=== PATIENT | female | born 1950 | race Caucasian/White ===

== ENCOUNTER 2016-05-25 07:30 | Day surgery (SDC) | payer MEDICARE, BC ==
[~2016-05-25] VITALS: Ht 170.2 cm; Wt 84.5 kg
[~2016-05-25 07:30] MED LIST: GLUCTAB PO; [UNRECOGNIZED DRUG - CODE] PO
[2016-05-25 07:46] VITALS: BP 143/93; PULSE 72; RESP 20; TEMP 97.9; O2SAT 94
[2016-05-25] MEDS ORDERED: SODIUM CHLORIDE 0.9% 1000 ML IV SCH (08:15)
[2016-05-25] MEDS ORDERED: CHLORHEXIDINE GLUCONATE 2 % 1 PACK (2 CLOTHS) TOPICAL SCH (08:15)
[2016-05-25] MEDS ORDERED: VANCOMYCIN 1000 MG/NS 250 ML - implanted port/tunneled catheter IV SCH ×2 (08:15)
[2016-05-25] MEDS ORDERED: ceFAZolin 2 GM PREMIX 50 ML - implanted port/tunneled catheter insertion IV SCH (08:15)
[2016-05-25] MEDS ORDERED: POVIDONE IODINE 5% (ANTISEPSIS KIT) 4 APPLICATIONS EACH NARE SCH (08:15)
[2016-05-25] MEDS ORDERED: fentaNYL CITRATE 250 MCG/5 ML AMP ONE (09:18)
[2016-05-25] MEDS ORDERED: MIDAZOLAM HCL 5 MG/5 ML VIAL ONE (09:18)
[2016-05-25] MEDS ORDERED: LIDOCAINE 1%/EPINEPHrine 1:100,000 SOLN 20 ML VIAL ONE (09:39)
--- NOTE | 2016-05-25 10:21 | PD.RAD ---
Post Procedure Progress Note Pre Procedure Diagnosis: (1) Uterine cancer Post Procedure Diagnosis: (1) Uterine cancer Procedure Date: May 25, 2016 Supervising Radiologist: Wilmar Tan Proceduralist/Assist: Derick Floyd RT(R), RT Nam(R)() Anesthesia: Local, Conscious Sedation Plan of Activity Patient to Unit: ROPU Patient Condition: Good See PACS Report for procedural detail/treatment Central Venous Access Device Procedure 1 Right Infusaport Placement single lumen Czech: 8 Wilmar Tan MD May 25, 2016 10:21
[2016-05-25 10:30] VITALS: BP 133/75; PULSE 75; RESP 16; TEMP 97.6; O2SAT 90
--- NOTE | 2016-05-25 10:43 | RADRPT ---
EXAM DATE/TIME: 05/25/2016 09:15 [place] COMPARISON: No previous studies available for comparison. INDICATIONS : Patient presents with uterine cancer in need of port placement for chemotherapy treatment. MEDICAL HISTORY : Hypothyroid Sleep apnea Endometrial cancer 2014 SURGICAL HISTORY : Tubal ligation D and C Hysterectomy ENCOUNTER: Initial ACUITY: 3 months PAIN SCORE: 0/10 LOCATION: N/A FLUORO TIME: 0.3 minutes SEDATION TIME: 45 minutes ACCESS: Right internal jugular vein SEDATION: 1.) 3 mg midazolam (Versed) IV 2.) 150 mcg fentanyl (Sublimaze) IV Prophylactic antibiotics were administered with appropriate pre-procedure timing. Vancomycin within 2 hours of procedure, Ancef (or alternative) within 1 hour of procedure. DEVICE: 1. 8 [place]ian single lumen Bard Power Port PROCEDURE : 1. Continuous pulse oximetry and EKG monitoring. 2. Intravenous conscious sedation. 3. Ultrasound guidance for venous access. 4. Fluoroscopic guided implantable central venous port placement. The patient was placed supine. The neck was prepped in sterile fashion. Full sterile technique was u sed, including cap, mask, sterile gloves and gown, and a large sterile sheet. Hand hygiene and 2% ch lorhexidine Betadine was utilized per protocol for cutaneous antisepsis with appropriate dry time for site. The skin and subcutaneous tissues were infiltrated with local anesthetic solution. Under direct ultrasound guidance, central venous access was accomplished in the targeted vessel. The ultrasound images depicting access guidance were stored and saved to PACS for permanent record. A s ubcutaneous pocket was created using blunt dissection. The port was introduced to the pocket. The c atheter tubing was fed through a subcutaneous tunnel to the venotomy site. The catheter tubing was c ut to a suitable length and then was introduced through a valved Peel-Away sheath and positioned with catheter tubing tip at the cavo-atrial junction level. The pocket incision was closed with subcutic ular Vicryl suture. Steri-Strips were applied. The port was flushed and locked with heparin solutio n per protocol. Sterile dressing was applied to the site. The patient tolerated the procedure well. Conscious sedation was performed with the prescribed dosages and duration as above. The patient liana ated the procedure well and there were no complications. EKG and oximetry remained stable throughout the procedure. The patient was sent to post anesthesia recovery in stable condition. CONCLUSION: Uncomplicated ultrasound and fluoroscopic guided implanted central venous port catheter placement as described in detail above. An 8 Jordanian Power port was placed. Wilmar Tan MD on May 25, 2016 at 10:41 Board Certified Radiologist. This report was verified electronically.
[2016-05-25 10:45] VITALS: BP 126/72; PULSE 65; RESP 16; O2SAT 94
[2016-05-25 11:15] VITALS: BP 124/76; PULSE 68; RESP 16; O2SAT 95
[2016-05-25 11:45] VITALS: BP 126/73; PULSE 64; RESP 18; O2SAT 95
[2016-05-25 12:15] VITALS: BP 119/71; PULSE 70; RESP 16; O2SAT 97
== END 2016-05-25 12:45 | disposition home or self-care (01) ==
LOC: HROP 07:30 → HRIP 07:30 → HROP 12:45
PROVIDERS: ATTEND Obstetrics & Gynecology Gynecologic Oncology
DX: Z45.2 Encounter for adjustment and management of vascular access device (principal); C55 Malignant neoplasm of uterus, part unspecified; E03.9 Hypothyroidism, unspecified; G47.30 Sleep apnea, unspecified
CPT/HCPCS: 36561; 76937; 77001; 99152; 99153; C1788; J0690; J1642; J2250; J3010; J3370; J7030; J7050

== ENCOUNTER 2017-11-27 08:04 | Inpatient (IN) ==
[2017-11-27] MEDS ORDERED: Metoprolol Tartrate 25 MG Tablet PO SCH (09:15)
[2017-11-27] MEDS ORDERED: Chlorhexidine Gluconate 2% 1 Pack (2 Cloths) TOPICAL SCH (09:15)
[2017-11-27] MEDS ORDERED: Chlorhexidine 4% Topical 120 APPLIC/120 ML Bottle TOPICAL SCH (09:15)
[2017-11-27] MEDS ORDERED: TRANEXAMIC ACID IV.SIG SCH (09:30)
[2017-11-27] MEDS ORDERED: SODIUM CHLOR 0.9% IV.SIG SCH (09:30)
[2017-11-27] MEDS ORDERED: ceFAZolin Inj 2,000 MG in Sodium Chlor 0.9% Inj 100 ML IV.SIG SCH (09:30)
[2017-11-27] MEDS ORDERED: Sodium Chlor 0.9% Inj 40 ML, Bupivacaine Liposo PF 1.3% Inj 20 ML P-ARTICULR SCH ×2 (09:30)
[2017-11-27] MEDS ORDERED: Sodium Chlor 0.9% Inj 500 ML IV.SIG SCH (10:00)
[2017-11-27] MEDS ORDERED: Vancomycin Inj 1 GM/200 ML PIGGYBACK IV.SIG SCH (10:00)
[2017-11-27] MEDS ORDERED: ceFAZolin 2 GM Premix Inj 2 GM/50 ML PIGGYBACK IV.SIG ONE (10:36)
[2017-11-27 10:50] LABS: Baso % (Auto) 0.2 % (0.0-2.0); Eos # (Auto) 0.2 th/mm3 (0.0-0.4); Eos % (Auto) 2.9 % (0.0-4.0); Hematocrit 30.5 % (35.0-46.0); Hemoglobin 10.5 gm/dL (11.6-15.3); Lymph # (Auto) 0.3 th/mm3 (1.0-4.8); Lymph % (Auto) 3.6 % (9.0-44.0); Mean Corpuscular HGB Conc 34.4 % (32.0-36.0); Mean Corpuscular Hemoglobin 33.9 pg (27.0-34.0); Mean Corpuscular Volume 98.7 fL (80.0-100.0); Mean Platelet Volume 9.3 fL (7.0-11.0); Mono # (Auto) 0.1 th/mm3 (0.0-0.9); Mono % (Auto) 2.1 % (0.0-8.0); Neut # (Auto) 6.5 th/mm3 (1.8-7.7); Neut % (Auto) 91.2 % (16.0-70.0); Platelet Count 77 th/mm3 (150-450); Red Blood Count 3.09 mil/mm3 (4.00-5.30); Red Cell Distribution Width 16.2 % (11.6-17.2); White Blood Count 7.1 th/mm3 (4.0-11.0)
[2017-11-27 10:59] LABS: INR 1.1 Ratio; Prothrombin Time 10.8 sec (9.8-11.6)
[2017-11-27 11:07] LABS: Anion Gap 6 meq/L (5-15); Blood Urea Nitrogen 22 mg/dL (7-18); Calcium 9.2 mg/dL (8.5-10.1); Carbon Dioxide 31.8 meq/L (21.0-32.0); Chloride 103 meq/L (98-107); Glomerular Filtration Rate Greater Than 89 mL/min (>89); Glucose,Random 107 mg/dL (74-106); Potassium 4.2 meq/L (3.5-5.1); Sodium 141 meq/L (136-145)
[2017-11-27 11:12] LABS: Bacteria,Urine Moderate /hpf; Bilirubin,Urine Negative (Negative); Clarity,Urine Hazy (Clear); Color,Urine Yellow (Yellw/Straw); Glucose,Urine (UA) Negative (Negative); Leukocyte Esterase,Urine Small (Negative); Mucus,Urine Few /lpf (Occasional); Nitrite,Urine Negative (Negative); Specific Gravity,Urine 1.015 (1.002-1.035); Squamous Epithelial Cell,Urine <1 /hpf (0-5)
[2017-11-27 11:33] LABS: Eosinophils 1 % (0-4); Lymphocytes 3 % (9-44); Metamyelocytes 4 % (0-1); Monocytes 2 % (0-8); Myelocytes 3 % (0-0)
[2017-11-27 11:36] LABS: Platelet Morphology Normal (Normal)
[2017-11-27] MEDS ORDERED: Phenylephrine/NS 1000 MCG/10ML Syringe IV.PUSH ONE (12:00)
[2017-11-27] MEDS ORDERED: Neostigmine Inj 5 MG/5 ML Syringe IV.PUSH ONE (12:00)
[2017-11-27] MEDS ORDERED: Lidocaine PF 1% Inj 5 ML Syringe INFILTRATN ONE (12:00)
[2017-11-27] MEDS ORDERED: Glycopyrrolate Inj 1 MG/5 ML Syringe IV.PUSH ONE (12:00)
[2017-11-27] MEDS ORDERED: oxyCODONE/Acetaminophen 10/325 Tablet PO PRN (13:28)
[2017-11-27] MEDS ORDERED: Bisacodyl 10 MG Supp RECTAL PRN (13:28)
[2017-11-27] MEDS ORDERED: Morphine Inj 4 MG/ML Vial IV.PUSH PRN (13:28)
[2017-11-27] MEDS ORDERED: Post-op Orders (for Pharmacy) OTHER STA (13:28)
--- NOTE | 2017-11-27 13:38 | P.OP ---
- Preoperative Diagnosis (1) Metastatic adenocarcinoma to bone (2) Impending pathologic fracture - Postoperative Diagnosis (1) Impending pathologic fracture (2) Metastatic adenocarcinoma to bone Date of procedure: 11/27/17 Procedure: Open treatment prophylactic intramedullary janell of the left femur, antegrade, extended trochanteric nail. Biopsy of the lesion proximal left femur Anesthesia: VERNON Surgeon: Dejon Chambers MD Monogram Maker: MATT Monroe Operation and Findings: EBL: 200 cc INDICATION: This patient is a 67-year-old female with metastatic adenocarcinoma to bone from the region of her uterus and cervix. She has had radiation therapy to the left hip. She is having increasing pain in the region of her left hip. Investigative studies are highly suspicious for an impending fracture. X-ray showed that there is a fracture starting in the region of the intertrochanteric component of her left hip. She now presents for surgical stabilization with biopsy. NOTE: Lakesha Monroe PA-C was present for the entire surgical procedure as my first assistant manager. In my medical opinion her skill and care was necessary for proper management of this patient PROCEDURE: The patient was brought to the operating room and anesthetized in the supine position. He was placed on the fracture table with the left leg held extended. The opposite leg was in the well leg mercer. The hip fracture was reduced anatomically. The hip and leg was scrubbed with alcohol followed by Hibiclens followed by ChloraPrep. A timeout was done and antibiotics were given within 1 hour time window. A longitudinal incision was made over the lateral aspect of the proximal femur. Dissection continued down to the top of the greater trochanter. A cannulated awl was placed down through the top of the greater trochanter followed by placement of the guidepin along the shaft of the femur. This was reamed distally to 1 mm greater than the janell size and proximally to 17 mm. Reamings were sent to pathology. A separate incision was made laterally followed by placement of guidepin to the proper position of the femoral head. This is reamed and tapped in the proper length was placed up into the proper location. A single transverse screw was placed distally through the janell. Intraoperative x-rays were obtained. Alignment was satisfactory. No complication was noted. The wound was irrigated copiously. Hemostasis was controlled. The fascia was closed with interrupted Vicryl suture, subcutaneous tissue 2-0 Vicryl suture, skin with running intradermal 3-0 Vicryl followed by Steri-Strips and benzoin. A sterile dressing was applied The patient was awakened and taken to the recovery room in satisfactory condition. FINDINGS: There was evidence of a fracture in the region of the greater trochanter extending into the intertrochanteric region. The stabilization was very satisfactory. A counter rotating additional support screw was placed in the cephalad portion of the femoral neck. The overall alignment was felt to be very satisfactory
--- NOTE | 2017-11-27 13:39 | P.DCO ---
- Physical Therapy Physical Therapy: Gait training Hip: Hip fracture Left Lower Extremity Weight Bearing: Weight bearing as tolerated - Nursing RN: 3 days/week x 2 weeks Dressing changes: Do not change dressing (Unless saturated) - Certification Need for Home Health services: I have seen patient Annette Tony on 11/27/17. My clinical findings support the need for the requested home health care services because: Homebound Certification: I certify that my clinical findings support that this patient is homebound because:
[2017-11-27] MEDS ORDERED: *morphine SULFATE 4 MG/ML PERIprocedure ONLY ONE ×2 (13:58→14:02)
[2017-11-27] MEDS ORDERED: fentaNYL Citrate Inj 100 MCG/2 ML Ampul ONE (13:59)
[2017-11-27] MEDS ORDERED: HYDROmorphone PF Inj 2 MG/ML Vial ONE (14:12)
--- NOTE | 2017-11-27 15:08 | P.DS ---
Date of admission: 11/27/17 08:04 Primary care physician: Anirudh Magaña Attending physician on discharge: Dejon Chambers Anticipated date of discharge: 11/28/17 DS: Diagnosis - Discharge Diagnosis (1) Metastatic adenocarcinoma to bone Status: Chronic (2) Impending pathologic fracture Status: Acute DS: Medications - Discharge Medications Prescriptions: oxycodone-acetaminophen 1 tab PO Q4H PRN #42 tab PRN Reason: Acute Pain DS: Summary Hospital Course: Surgical treatment was accomplished on the day of admission without complication. The patient recovered well in PACU and was transferred to the orthopedic floor. Pain was controlled with IV and oral medications. She is compliant with her walker and all physical therapy restrictions and precautions. After ___ days she was discharged home with home healthcare. She was instructed to continue a high fiber diet for 5-7 days postop, to ice the operative ____ twice daily, and to continue with her gait training and physical therapy. She was given prescriptions for . - Time Spent with Patient Total time spent providing and/or coordinating discharge services: - Quality: VTE Deep Vein Thrombosis/Pulmonary Embolism Present on Admission: No Exam Vital signs: Vital Signs 11/27/17 09:40 11/27/17 13:49 11/27/17 14:00 Temperature 98.7 F 97.5 F L Pulse Rate 88 80 73 Respiratory Rate 20 12 16 Blood Pressure 129/69 135/63 127/60 Pulse Oximetry 97 100 96 11/27/17 14:15 11/27/17 14:30 11/27/17 14:45 Temperature Pulse Rate 67 68 68 Respiratory Rate 15 12 12 Blood Pressure 155/69 H 116/62 117/61 Pulse Oximetry 95 95 95 Intake & Output 11/26/17 11/27/17 11/27/17 18:59 06:59 18:59 Intake Total 600 / 600 Balance 600 / 600 Weight 82.7 kg Intake: Anesthesia Amount 600 / 600 Other: Weight On Admission 82.7 kg Results Procedures completed during hospitalization: Prophylactic Intramedullary janell left femur for impending fracture, bone biopsy Labs on day of discharge: Labs from last 24 hours 11/27/17 11/27/17 11/27/17 10:45 09:55 09:55 WBC RBC Hgb Hct MCV MCH MCHC RDW Plt Count MPV Prelim Diff (Auto) Neut % (Auto) Lymph % (Auto) [place] % (Auto) Eos % (Auto) Baso % (Auto) Neut # (Auto) Lymph # (Auto) [place] # (Auto) Eos # (Auto) Baso # (Auto) WBC Differential Seg Neuts % (Manual) Band Neuts % (Manual) Lymphocytes % (Manual) Monocytes % (Manual) Eosinophils % (Manual) Basophils % (Manual) Metamyelocytes % (Man) Myelocytes % (Man) Abs Neuts (Manual) Differential Comment Platelet Estimate Platelet Morphology PT INR APTT 25.5 Sodium Potassium Chloride Carbon Dioxide Anion Gap BUN Creatinine Estimated GFR Random Glucose Calcium Urine Color Yellow Urine Clarity Hazy H Urine pH 8.0 Ur Specific [place] 1.015 Urine Protein Negative Urine Glucose (UA) Negative Urine Ketones Negative Urine Occult Blood Negative Urine Nitrate Negative Urine Bilirubin Negative Urine Urobilinogen Less than 2 Ur Leukocyte Esterase Small H Urine RBC 1 Urine WBC 59 H Ur Squamous Epith Cells <1 Urine Bacteria Moderate H Urine Mucus Few H Micro UA Comment Cath-culture ind Urine Culture Comments Cath-cult indicated Blood Type A Positive Antibody Screen Negative MTS Gel Crossmatch See Detail 11/27/17 11/27/17 11/27/17 09:55 09:55 09:55 WBC 7.1 RBC 3.09 L Hgb 10.5 L Hct 30.5 L MCV 98.7 MCH 33.9 MCHC 34.4 RDW 16.2 Plt Count 77 L MPV 9.3 Prelim Diff (Auto) Slide review pending Neut % (Auto) 91.2 H Lymph % (Auto) 3.6 L [place] % (Auto) 2.1 Eos % (Auto) 2.9 Baso % (Auto) 0.2 Neut # (Auto) 6.5 Lymph # (Auto) 0.3 L [place] # (Auto) 0.1 Eos # (Auto) 0.2 Baso # (Auto) 0.0 WBC Differential Manual diff final Seg Neuts % (Manual) 72 H Band Neuts % (Manual) 14 H Lymphocytes % (Manual) 3 L Monocytes % (Manual) 2 Eosinophils % (Manual) 1 Basophils % (Manual) 1 Metamyelocytes % (Man) 4 H Myelocytes % (Man) 3 H Abs Neuts (Manual) 6.6 Differential Comment . Platelet Estimate Low L Platelet Morphology Normal PT 10.8 INR 1.1 APTT Sodium 141 Potassium 4.2 Chloride 103 Carbon Dioxide 31.8 Anion Gap 6 BUN 22 H Creatinine 0.62 Estimated GFR Greater than 89 Random Glucose 107 H Calcium 9.2 Urine Color Urine Clarity Urine pH Ur Specific [place] Urine Protein Urine Glucose (UA) Urine Ketones Urine Occult Blood Urine Nitrate Urine Bilirubin Urine Urobilinogen Ur Leukocyte Esterase Urine RBC Urine WBC Ur Squamous Epith Cells Urine Bacteria Urine Mucus Micro UA Comment Urine Culture Comments Blood Type Antibody Screen MTS Gel Crossmatch Discharge Plan - Discharge Disposition Patient Disposition: W/Home Health Service - Discharge Condition Condition: Good - Discharge Order Discharge Orders: Discharge Order (Routine); Ordered 11/28/17 Ordered By: Dejon Chambers - Discharge Details Anticipated Discharge Date: 11/28/17 - Physicians Team Primary Care Provider: Anirudh Magaña Attending Provider: Dejon Chambers Other Providers: Marbella Thomas MD ; Ramsey Rodriguez MD - Rxs /Orders / Referrals /Forms Prescriptions: New aspirin 81 mg Tablet,Chewable 81 mg PO BID Qty: 60 RF: 0 oxycodone-acetaminophen 10-325 mg Tablet 1 tab PO Q4H PRN (Reason: Acute Pain) Qty: 42 RF: 0 Continue albuterol sulfate [Ventolin HFA] 90 mcg/actuation Hfa Aerosol Inhaler 1 puff INHALATION Q4-6H PRN (Reason: Shortness Of Breath) metformin 500 mg Tablet 500 mg PO BID Nature-Throid oxycodone-acetaminophen 5-325 mg Tablet 1 tab PO Q4-6H PRN (Reason: Pain) Referrals: Anirudh Magaña MD [Primary Care Provider] - See Instructions - Discharge Instructions Patient Printed Instructions: JOSELITO PERDUE)
--- NOTE | 2017-11-27 17:51 | XR ---
EXAM DATE: 11/27/2017 5:42 PM EDT AGE/SEX: 67 years / Female INDICATIONS: Prophylactic placement of a IM janell left femur. CLINICAL DATA: This is the patient's initial encounter. Patient reports that signs and symptoms have been present for 1 day and indicates a pain score of Nonresponsive. MEDICAL/SURGICAL HISTORY: . Hypothyroid Sleep apnea Endometrial cancer 2014 . Tubal ligation D and C Hysterectomy, infuse a port. COMPARISON: No prior exams available for comparison. FINDINGS: 5 magnified C-arm spot views are centered over the femur and labeled left. These show 2 femoral neck screws with long intramedullary janell component. A distal anchoring screw noted. Femoral neck screws ar e contained within the cortical confines of the femoral head. CONCLUSION: Limited images as detailed above. Electronically signed by: Rowdy Benson MD 11/27/2017 5:50 PM EDT
[2017-11-27] MEDS: Senna/Docusate Sodium 8.6/50 MG Tablet PO SCH (20:31)
[2017-11-27] MEDS: Multivitamin/Minerals Therapeutic Tablet PO SCH (20:32)
[2017-11-27] MEDS: oxyCODONE/Acetaminophen 10/325 Tablet PO PRN (20:45)
[2017-11-27] MEDS ORDERED: Temazepam 15 MG Capsule PO PRN (21:00)
--- NOTE | 2017-11-27 23:04 | ECG ---
Date Performed: 11/27/2017 Time Performed: 09:17:32 PTAGE: 67 years EKG: Sinus rhythm NORMAL ECG PREVIOUS TRACING : 03/30/2016 15.29 Compared to previous tracing, IRBBB no longer noted DOCTOR: Moisés Barbour Interpretating Date/Time 11/27/2017 23:03:44
[2017-11-28] MEDS: oxyCODONE/Acetaminophen 10/325 Tablet PO PRN ×5 (04:03→18:08)
--- NOTE | 2017-11-28 08:34 | P.PNOP ---
Subjective Interval history: She is doing well. She notes mild aching about the hip into the thigh. She denies any pain radiating below the knee. She denies any new chest pain or shortness of breath. She has questions about surgery. Physical Exam Vital signs: Vital Signs 11/27/17 09:40 11/27/17 13:49 11/27/17 14:00 Temperature 98.7 F 97.5 F L Pulse Rate 88 80 73 Respiratory Rate 20 12 16 Blood Pressure 129/69 135/63 127/60 Pulse Oximetry 97 100 96 11/27/17 14:15 11/27/17 14:30 11/27/17 14:45 Temperature Pulse Rate 67 68 68 Respiratory Rate 15 12 12 Blood Pressure 155/69 H 116/62 117/61 Pulse Oximetry 95 95 95 11/27/17 15:00 11/27/17 16:00 11/27/17 17:00 Temperature 97.2 F L Pulse Rate 70 70 81 Respiratory Rate 12 12 18 Blood Pressure 111/55 L 112/61 127/61 Pulse Oximetry 95 95 96 11/27/17 18:00 11/27/17 19:00 11/28/17 00:54 Temperature 97.9 F 98.4 F 98.3 F Pulse Rate 74 63 67 Respiratory Rate 12 18 17 Blood Pressure 122/66 127/66 108/59 L Pulse Oximetry 93 L 99 96 11/28/17 04:45 Temperature 97.3 F L Pulse Rate 70 Respiratory Rate 18 Blood Pressure 131/60 Pulse Oximetry 96 Intake & Output 11/27/17 11/28/17 11/28/17 18:59 06:59 18:59 Intake Total 740 / 740 460 / 460 Balance 740 / 740 460 / 460 Weight 82.7 kg 82.7 kg Intake: IV 65 / 65 100 / 100 LR 1000 mL Inj 1,000 ML @ 80 65 / 65 mls/hr IV.CONT .[id number] MARIELOS Rx# :[id number] Ancef Inj 1,000 MG In NS Inj 100 / 100 100 ML @ 200 mls/hr IV.SIG Q6H MARIELOS Rx#:[id number] Oral 75 / 75 360 / 360 Anesthesia Amount 600 / 600 Other: # Voids 1 3 # Incontinent Voids 1 Date of Last Bowel Movement 11/26/17 # Bowel Movements 0 Weight On Admission 82.7 kg Narrative: Sitting up in bed No acute distress Left LE Multiple lateral hip incisions, dressings c/d/i, no drainage, very mild swelling +motor at distal, +sens foot and leg, +nvi neg homans - Constitutional no acute distress Results - Labs CBC & Chem 7: 11/27/17 09:55 11/27/17 09:55 Laboratory Results - last 24 hr 11/27/17 11/27/17 11/27/17 09:55 09:55 09:55 WBC 7.1 RBC 3.09 L Hgb 10.5 L Hct 30.5 L MCV 98.7 MCH 33.9 MCHC 34.4 RDW 16.2 Plt Count 77 L MPV 9.3 Prelim Diff (Auto) Slide review pending Neut % (Auto) 91.2 H Lymph % (Auto) 3.6 L [place] % (Auto) 2.1 Eos % (Auto) 2.9 Baso % (Auto) 0.2 Neut # (Auto) 6.5 Lymph # (Auto) 0.3 L [place] # (Auto) 0.1 Eos # (Auto) 0.2 Baso # (Auto) 0.0 WBC Differential Manual diff final Seg Neuts % (Manual) 72 H Band Neuts % (Manual) 14 H Lymphocytes % (Manual) 3 L Monocytes % (Manual) 2 Eosinophils % (Manual) 1 Basophils % (Manual) 1 Metamyelocytes % (Man) 4 H Myelocytes % (Man) 3 H Abs Neuts (Manual) 6.6 Differential Comment . Platelet Estimate Low L Platelet Morphology Normal PT 10.8 INR 1.1 APTT Sodium 141 Potassium 4.2 Chloride 103 Carbon Dioxide 31.8 Anion Gap 6 BUN 22 H Creatinine 0.62 Estimated GFR Greater than 89 Random Glucose 107 H Calcium 9.2 Urine Color Urine Clarity Urine pH Ur Specific [place] Urine Protein Urine Glucose (UA) Urine Ketones Urine Occult Blood Urine Nitrate Urine Bilirubin Urine Urobilinogen Ur Leukocyte Esterase Urine RBC Urine WBC Ur Squamous Epith Cells Urine Bacteria Urine Mucus Micro UA Comment Urine Culture Comments Blood Type Antibody Screen MTS Gel Crossmatch 11/27/17 11/27/17 11/27/17 09:55 09:55 10:45 WBC RBC Hgb Hct MCV MCH MCHC RDW Plt Count MPV Prelim Diff (Auto) Neut % (Auto) Lymph % (Auto) [place] % (Auto) Eos % (Auto) Baso % (Auto) Neut # (Auto) Lymph # (Auto) [place] # (Auto) Eos # (Auto) Baso # (Auto) WBC Differential Seg Neuts % (Manual) Band Neuts % (Manual) Lymphocytes % (Manual) Monocytes % (Manual) Eosinophils % (Manual) Basophils % (Manual) Metamyelocytes % (Man) Myelocytes % (Man) Abs Neuts (Manual) Differential Comment Platelet Estimate Platelet Morphology PT INR APTT 25.5 Sodium Potassium Chloride Carbon Dioxide Anion Gap BUN Creatinine Estimated GFR Random Glucose Calcium Urine Color Yellow Urine Clarity Hazy H Urine pH 8.0 Ur Specific [place] 1.015 Urine Protein Negative Urine Glucose (UA) Negative Urine Ketones Negative Urine Occult Blood Negative Urine Nitrate Negative Urine Bilirubin Negative Urine Urobilinogen Less than 2 Ur Leukocyte Esterase Small H Urine RBC 1 Urine WBC 59 H Ur Squamous Epith Cells <1 Urine Bacteria Moderate H Urine Mucus Few H Micro UA Comment Cath-culture ind Urine Culture Comments Cath-cult indicated Blood Type A Positive Antibody Screen Negative MTS Gel Crossmatch See Detail - Imaging Impressions Femur X-Ray 11/27/17 00:00 CONCLUSION: Limited images as detailed above. - Procedures Prophylactic Intramedullary janell left femur for impending fracture, bone biopsy Assessment and Plan - Ortho Post Op Day # 1 - Problem List (1) Metastatic adenocarcinoma to bone Code(s): C79.51 - Secondary malignant neoplasm of bone Status: Chronic (2) Impending pathologic fracture Code(s): M84.40XA - Pathological fracture, unspecified site, initial encounter for fracture Status: Acute - Assessment and Plan pod#1 Prophylactic IM janell left femur, biopsy. Hx metastatic carcinoma She is doing well. She notes some pain left thigh. No lower leg pain. Her lab work is not been performed this morning. I did want to review hemoglobin and hematocrit and platelet count since these were deficient prior to surgery. If lab work is stable ok to discharge home with home healthcare today. Progressive weightbearing as tolerated left lower extremity. PO pain meds as needed. Hold off on dressing changes unless saturated. Follow-up in 2 weeks as scheduled.
[2017-11-28] MEDS: Multivitamin/Minerals Therapeutic Tablet PO SCH (09:20)
[2017-11-28] MEDS: Senna/Docusate Sodium 8.6/50 MG Tablet PO SCH (09:21)
[2017-11-28 09:53] LABS: Hematocrit 26.6 % (35.0-46.0); Hemoglobin 9.3 gm/dL (11.6-15.3)
[2017-11-28] MEDS ORDERED: Heparin Central Flush 100 UNIT/ML 5 ML Vial IV.FLUSH PRN (17:51)
== END 2017-11-28 18:22 | disposition home health service (06) ==
LOC: HSDI 08:04 → N06 18:29
PROVIDERS: ADMIT Orthopaedic Surgery Orthopaedic Surgery of the Spine; ATTEND Orthopaedic Surgery Orthopaedic Surgery of the Spine
PROC: ORIFFEM (2017-11-27 11:25)